=== PATIENT | female | born 1970 | race Caucasian/White ===

== ENCOUNTER 2019-12-22 09:31 | Emergency (ER) | payer SELFPAY ==
[2019-12-22 09:54] VITALS: BP 147/97; PULSE 88; RESP 18; TEMP 36.2; O2SAT 98
--- NOTE | 2019-12-22 10:02 | ED.URI ---
HPI - URI/Sore Throat General Chief Complaint: Ear Stated Complaint: Ear ache/Sore throat Time Seen by Provider: 12/22/19 10:05 Source: patient and RN notes reviewed History of Present Illness HPI Narrative: Patient is a 49-year-old female presents the urgent care with complaints of right earache and sore throat radiating from the ear. Patient states is been ongoing for approximately 2 weeks and she is taken ibuprofen intermittently as well as use Q-tips in the ear. Patient is a chronic smoker. Denies of any known fevers, cough, runny nose, related upper respiratory symptoms. Patient is tearful but states that it is non-concerning to her current visit. No other acute complaints. No acute distress noted. Patient read the plan of care. Related Data Home Medications Medication Instructions Recorded Confirmed furosemide 12/22/19 ipratropium-albuterol [Combivent INHALATION 12/22/19 Respimat] potassium chloride meq PO 12/22/19 propranolol 12/22/19 ranitidine HCl 12/22/19 spironolactone 12/22/19 Allergies Allergy/AdvReac Type Severity Reaction Status Date / Time acetaminophen Allergy Unknown Unknown Verified 09/10/19 12:39 codeine Allergy Unknown unknown Verified 09/10/19 12:38 Review of Systems Review of Systems: Narrative: CONSTITUTIONAL: Denies fever, chills, or sweats. EYES: Denies visual changes, redness, or discharge. ENT: Reports of right otalgia radiating to the throat CARDIOVASCULAR: Denies chest pain, palpitations, or edema. RESPIRATORY: Denies cough or dyspnea. GASTROINTESTINAL: Denies abdominal pain, nausea, vomiting, or diarrhea. GENITOURINARY: Denies dysuria or hematuria. SKIN: Denies rash or itching. MUSCULOSKELETAL: Denies back pain, joint pain, or myalgia. NEUROLOGIC: Denies headache, numbness, or weakness. All other systems reviewed are negative, except as documented in HPI. [facility] Family History Family History (Updated 07/12/17 @ 11:24 by DOCTOR UNKNOWN) Father Family history of emphysema, Onset Age: 54 Family history of cardiovascular disease Family history of chronic obstructive pulmonary disease Mother Family history of lupus erythematosus Other Diabetes mellitus Family history of allergic disorder Family history of malignant neoplasm Hypertension Social History Social History Smoking status: Never smoker Alcohol intake: current Comments At the time of my signature, I reviewed and agree with the nursing past medical, surgical, social, and family history. There is no relevant family history pertinent to the patient complaint. Exam Narrative: Exam Narrative: GENERAL: This is a well-nourished, well-developed patient, in no apparent distress. HEAD: normocephalic, atraumatic. EYES: PERRL. Sclera clear/white. Vision is grossly intact. EARS: External ears normal, auditory canals clear and without drainage, dull erythemic injected right TM. Left TMs normal without perforation. Hearing grossly intact. NOSE: External nose normal with no obvious nasal discharge, nares without redness, no rhinorrhea. THROAT: Mucous membranes moist, moderate erythema noted posterior oropharynx with mild postnasal drainage NECK: Neck supple CARDIOVASCULAR: Regular rate and rhythm without murmurs, gallops, or rubs. RESPIRATORY: Clear to auscultation. Breath sounds equal bilaterally. No wheezes, rales, or rhonchi. SKIN: warm, intact with no suspicious lesions or rash, good texture and turgor. NEURO: awake, alert, and oriented to person, place and time. There were no obvious focal neurologic abnormalities. EXTREMITIES: No clubbing, cyanosis, or edema. Course Vital Signs Vital signs: Vital Signs Temperature 97.1 F L 12/22/19 09:54 Pulse Rate 88 12/22/19 09:54 Respiratory Rate 18 12/22/19 09:54 Blood Pressure 147/97 H 12/22/19 09:54 Pulse Oximetry 98 12/22/19 09:54 Temperature 97.1 F L 12/22/19 09:54 Pulse Rate 88 12/22/19 09:54 Respiratory Rate 18
== END 2019-12-22 10:30 | disposition home or self-care (01) ==
PROVIDERS: Emergency Provider Nurse Practitioner Family; PCP Emergency Medicine
DX: H66.91 Otitis media, unspecified, right ear (principal); K74.60 Unspecified cirrhosis of liver; Z85.828 Personal history of other malignant neoplasm of skin
CPT/HCPCS: 99213; G0463

== ENCOUNTER 2024-04-24 18:34 | Emergency (ER) | payer OTHER, SELFPAY ==
[2024-04-24 18:51] VITALS: BP 139/77; PULSE 90; RESP 20; TEMP 36.4; O2SAT 96
[2024-04-24 18:52] VITALS: BP 139/77; PULSE 90; RESP 20; TEMP 36.4; O2SAT 96
--- NOTE | 2024-04-24 19:14 | ED.DENTAL ---
HPI - Dental/Oral General Chief complaint: Dental/Oral Stated complaint: Dental Pain/Feet Pain Time Seen by Provider: 04/24/24 18:38 Source: patient Mode of arrival: ambulatory Limitations: no limitations History of Present Illness HPI Narrative: Elsa is a 54-year-old female patient presenting to the clinic today with complaints of left lower dental pain and left dorsal foot pain. She reports the foot pain has been going on and off for the past several weeks with some mild swelling and pain to the dorsal foot. Feels as though she has a knot on her foot. Denies any fever or chills. Has swelling to the left lower jaw with a fractured tooth with cavity. Has not seen the dentist. Related Data Allergies Allergy/AdvReac Type Severity Reaction Status Date / Time acetaminophen Allergy Unknown Unknown Verified 04/24/24 18:51 codeine Allergy Unknown unknown Verified 04/24/24 18:51 Review of Systems Review of Systems: Pertinent positives per HPI. Patient denies any fever, chills, rash, headache, visual changes, dizziness, cough, runny nose, sore throat, shortness of breath, chest pain, palpitations, nausea, vomiting, diarrhea, constipation, abdominal pain, or any urinary issues. PMFSH Family History Family History Father Family history of emphysema, Onset Age: 54 Family history of cardiovascular disease Family history of chronic obstructive pulmonary disease Mother Family history of lupus erythematosus Other Diabetes mellitus Family history of allergic disorder Family history of malignant neoplasm Hypertension Social History Social History Smoking status: Never smoker Alcohol intake: current Comments At the time of my signature, I reviewed and agree with the nursing past medical, surgical, social, and family history. There is no relevant family history pertinent to the patient complaint. Exam Narrative: General: Well-developed, well nourished, in no apparent distress Head: Normocephalic, atraumatic Eyes: Pupils equally round and reactive to light bilaterally, EOM intact, sclera and conjunctive clear, no discharge, lids normal Ears: TMs intact and clear, ear canals clear, no drainage, grossly hearing normal. Nose: Nares patent, no discharge, no inflammation, no sinus tenderness. Mouth: Oropharynx without lesions or masses, poor dentition, MMM. Fracture decayed number 18. With pus noted to the gums with non fluctuant abscess. Tender to palpation Neck: Supple, trachea midline, no enlargement of anterior or posterior cervical nodes, no thyroid masses or goiter palpable. Cardio: Regular rate and rhythm, s1 and s2 normal, no murmur appreciated. Resp: Clear to auscultation bilaterally anteriorly and posteriorly, no rhonchi, rales, wheezing or rubs Musculoskeletal: No deformity, tender to palpation over the dorsal left foot, grossly normal range of motion, no swelling noted, muscle strength strong and equal, peripheral pulse strong, no edema, no cyanosis, normal gait and station Course Course Emergency Course: Portions of this record may have been created with voice recognition software. Level of Care: Express Care Visit Vital Signs Vital signs: Vital Signs Temperature 36.4 C L 04/24/24 18:51 Pulse Rate 90 04/24/24 18:51 Respiratory Rate 20 04/24/24 18:51 Blood Pressure 139/77 04/24/24 18:51 Pulse Oximetry 96 04/24/24 18:51 Oxygen Delivery Room Air 04/24/24 18:51 Temperature 36.4 C L 04/24/24 18:52 Pulse Rate 90 04/24/24 18:52 Respiratory Rate 20 04/24/24 18:52 Blood Pressure 139/77 04/24/24 18:52 Pulse Oximetry 96 04/24/24 18:52 Oxygen Delivery Room Air 04/24/24 18:52 Vital signs reviewed MDM - Dental/Oral MDM Narrative Medical decision making narrative: At the time of visit patient is resting comfortably on the exam table.
[2024-04-24] MEDS: cefTRIAXone 1 GM, LIDOCAINE HCL 1% LOCAL INJ 2.1 ML IM (19:18)
== END 2024-04-24 19:32 | disposition home or self-care (01) ==
PROVIDERS: Emergency Provider Nurse Practitioner Family; PCP Physician Assistant
DX: K04.7 Periapical abscess without sinus (principal); M79.672 Pain in left foot; K74.60 Unspecified cirrhosis of liver; Z85.828 Personal history of other malignant neoplasm of skin
CPT/HCPCS: 96372; 99213; G0463; J0696